=== PATIENT | female | born 1955 | race African-American/Black ===

== ENCOUNTER 2019-03-30 19:39 | Emergency (ER) | payer MEDICAID ==
[~2019-03-30] VITALS: Ht 177.8 cm; Wt 91.0 kg
[2019-03-30] MEDS ORDERED: TETANUS, DIPHTHERIA, PERTUSSIS VAC/PF 0.5ML (>7YR OLD) IM ONE (20:30)
[2019-03-30] MEDS ORDERED: LIDOCAINE HCL/PF 1% 10 MG/ML 5ML VIAL IJ ONE (20:30)
[2019-03-30] MEDS ORDERED: BACITRACIN ZINC OINT UDPKT TOP ONE (20:30)
[2019-03-30] MEDS ORDERED: BACITRACIN 15GM TUBE TOP NR (20:45)
[2019-03-30 21:26] VITALS: BP 114/87
[2019-03-30] MEDS ORDERED: IBUPROFEN 600MG TABLET PO ONE (21:30)
== END 2019-03-30 21:46 | disposition home or self-care (01) ==
LOC: ER 19:39
DX: S01.81XA Laceration without foreign body of other part of head, initial encounter (principal); S50.811A Abrasion of right forearm, initial encounter; I10 Essential (primary) hypertension; V49.59XA Passenger injured in collision with other motor vehicles in traffic accident, initial encounter; Y93.89 Activity, other specified; Y92.89 Other specified places as the place of occurrence of the external cause; Y99.8 Other external cause status
CPT/HCPCS: 12011; 90471; 90715; 99283; J3490

== ENCOUNTER 2019-04-01 11:31 | Emergency (ER) | payer MEDICAID ==
[~2019-04-01] VITALS: Ht 175.3 cm; Wt 78.0 kg
[2019-04-01 12:00] VITALS: BP 165/98
== END 2019-04-01 12:49 | disposition left against medical advice (07) ==
LOC: ER 11:31
DX: S01.81XD Laceration without foreign body of other part of head, subsequent encounter (principal); Z53.21 Procedure and treatment not carried out due to patient leaving prior to being seen by health care provider; X58.XXXD Exposure to other specified factors, subsequent encounter

== ENCOUNTER 2019-04-10 15:51 | Emergency (ER) | payer MEDICAID ==
[~2019-04-10] VITALS: Ht 170.2 cm; Wt 64.0 kg
[2019-04-10 16:19] VITALS: BP 182/87
== END 2019-04-10 18:34 | disposition home or self-care (01) ==
LOC: ER 15:51
DX: Z48.02 Encounter for removal of sutures (principal); I10 Essential (primary) hypertension
CPT/HCPCS: 99281